=== PATIENT | female | born 2000 ===

== ENCOUNTER 2022-07-15 09:07 | Outpatient (CLI) | payer OTHER | END 2022-07-15 10:30 | disposition home or self-care (01) | LOC: PRENATAL 09:07 | PROVIDERS: ATTEND Obstetrics & Gynecology Maternal & Fetal Medicine | DX: O35.0XX0 Maternal care for (suspected) central nervous system malformation in fetus, not applicable or unspecified (principal); O35.3XX0 Maternal care for (suspected) damage to fetus from viral disease in mother, not applicable or unspecified; O99.280 Endocrine, nutritional and metabolic diseases complicating pregnancy, unspecified trimester; O26.879 Cervical shortening, unspecified trimester; Z3A.23 23 weeks gestation of pregnancy ==